=== PATIENT | male | born 1985 | race Caucasian/White ===

== ENCOUNTER 2016-10-14 16:29 | Emergency (ER) | payer SELFPAY ==
[~2016-10-14] VITALS: Ht 193 cm; Wt 79.0 kg
[2016-10-14 16:30] VITALS: BP 163/86; PULSE 75; RESP 15; TEMP 98.2; O2SAT 99
[2016-10-14] MEDS ORDERED: IBUP800T23 PO (17:21)
[2016-10-14] MEDS ORDERED: BACT800T5 PO (17:21)
--- NOTE | 2016-10-14 17:26 | PD ---
HPI Chief Complaint: Skin Problem Time Seen by Provider: 17:21 Travel History International Travel<30 days: No Contact w/Intl Traveler<30days: No Traveled to known affect area: No History of Present Illness HPI 31-year-old male presents to the emergency department stating that [place], slept in a old building and thinks he may have had a spider bite to the left dorsal lateral wrist. Patient states this happened yesterday, has gotten progressively worse in the last 12 hours. He has increased pain, erythema, and swelling to the dorsal left lateral wrist. There is no drainage. He denies fever, chills, or other symptoms. He denies street MRSA. He has no known drug allergies. [facility] Social History Alcohol Use: Yes Tobacco Use: Yes Substance Use: No Allergies-Medications (Allergen,Severity, Reaction): Coded Allergies: No Known Allergies (Unverified , 10/14/16) Review of Systems Except as stated in HPI: all other systems reviewed are Neg General / Constitutional: No: Fever Eyes: No: Visual changes HENT: No: Headaches Cardiovascular: No: Chest Pain or Discomfort Respiratory: No: Shortness of Breath Gastrointestinal: No: Abdominal Pain Genitourinary: No: Dysuria Musculoskeletal: No: Pain Skin: Positive Lesions, No Rash Neurologic: No: Weakness Psychiatric: No: Depression Endocrine: No: Polydipsia Hematologic/Lymphatic: No: Easy Bruising Physical Exam Narrative GENERAL: Patient appears in mild to moderate distress. SKIN: Warm and dry. Normal color. Normal turgor. Patient has a 6 cm x 5 cm oval erythematous tender indurated area over the left lateral dorsal wrist consistent with localized cellulitis. There is no obvious abscess. HEAD: Atraumatic. Normocephalic. EYES: Pupils equal and round. No scleral icterus. No injection or drainage. ENT: No nasal bleeding or discharge. Mucous membranes pink and moist. Pharynx is normal. Airway is patent. NECK: Trachea midline. Supple nontender without lymphadenopathy. CARDIOVASCULAR: Regular rate and rhythm. RESPIRATORY: No accessory muscle use. Clear to auscultation. Breath sounds equal bilaterally. MUSCULOSKELETAL: Extremities without clubbing, cyanosis, or edema. No obvious deformities. NEUROLOGICAL: Awake and alert. No obvious cranial nerve deficits. Motor grossly within normal limits. Five out of 5 muscle strength in the arms and legs. Normal speech. PSYCHIATRIC: Appropriate mood and affect; insight and judgment normal. Data Data Last Documented VS Vital Signs Date Time Temp Pulse Resp B/P Pulse Ox O2 Delivery O2 Flow Rate FiO2 10/14/16 16:30 98.2 75 15 163/86 99 MDM Medical Decision Making Medical Screen Exam Complete: Yes Emergency Medical Condition: Yes Differential Diagnosis Insect bite. Cellulitis. Early abscess. Narrative Course Patient is medically stable at time of exam. No drainable abscesses appreciated on my exam. Patient was treated with Bactrim DS twice a day 10 days. Patient is given ibuprofen 800 mg 3 times daily with food for pain. Patient is to use warm compresses to this area and follow-up if symptoms do not improve or worsen in the next several days. Diagnosis Primary Impression: Cellulitis of left upper extremity Referrals: Primary Care Physician Patient Instructions: General Instructions Additional Instructions: No drainable abscesses appreciated on my exam. Patient was treated with Bactrim DS twice a day 10 days. Patient is given ibuprofen 800 mg 3 times daily with food for pain. Patient is to use warm compresses to this area and follow-up if symptoms do not improve or worsen in the next several days. Scripts Ibuprofen 800 Mg Qpe260 Mg PO Q8H PRN (Pain/Inflammation) #30 TAB Prov:Mary Choe MD 10/14/16 Sulfamethoxazole-Trimethoprim (Bactrim DS)800-160 Mg Tab1 Tab PO BID #20 TAB Prov:Mary Choe MD 10/14/16 Disposition: 01 DISCHARGE HOME Condition: Stable Angus Camilo Oct 14, 2016 17:26
== END 2016-10-14 17:54 | disposition home or self-care (01) ==
LOC: NEPB 16:29
DX: L03.114 Cellulitis of left upper limb (principal); F10.10 Alcohol abuse, uncomplicated; Z72.0 Tobacco use
CPT/HCPCS: 99283